=== PATIENT | male | born 1960 | race Caucasian/White ===

== ENCOUNTER 2019-03-17 11:37 | Emergency (ER) | payer MEDICAID ==
[~2019-03-17] VITALS: Ht 170.2 cm; Wt 68.0 kg
[2019-03-17 12:17] VITALS: BP 155/73
[2019-03-17] MEDS ORDERED: KETOROLAC TROMETH 60MG/2ML VIAL IM ONE (12:30)
== END 2019-03-17 13:09 | disposition home or self-care (01) ==
LOC: ER 11:43
DX: M54.5 Low back pain (principal); R51 Headache; M25.562 Pain in left knee; F17.210 Nicotine dependence, cigarettes, uncomplicated
CPT/HCPCS: 93005; 96372; 99283; J1885

== ENCOUNTER 2021-06-20 14:41 | Emergency (ER) | payer MEDICAID ==
[~2021-06-20] VITALS: Ht 170.2 cm; Wt 81.6 kg
[2021-06-20 19:24] VITALS: BP 141/94
== END 2021-06-20 19:36 | disposition home or self-care (01) ==
LOC: ER 14:41
DX: N39.0 Urinary tract infection, site not specified (principal); M47.816 Spondylosis without myelopathy or radiculopathy, lumbar region; N43.3 Hydrocele, unspecified; R30.0 Dysuria; F32.9 Major depressive disorder, single episode, unspecified; F17.210 Nicotine dependence, cigarettes, uncomplicated
CPT/HCPCS: 72100; 76870

== ENCOUNTER 2022-01-10 17:34 | Inpatient (IN) | payer MEDICAID ==
[~2022-01-10] VITALS: Ht 170.2 cm; Wt 86.2 kg
[2022-01-10 19:07] LABS: Basophils # (auto) 0 10 ^3/uL (0-0.2); Basophils % (auto) 0.6 % (0.0-2.0); Eosinophils # (auto) 0.1 10 ^3/uL (0-0.8); Eosinophils % (auto) 1.8 % (0.0-7.0); Hemoglobin 12.5 g/dL (13.5-17.5); Lymphocytes # (auto) 1.4 10 ^3/uL (0.4-5.4); Lymphocytes % (auto) 27.8 % (10.0-50.0); Mean Corpuscular Hemoglobin 30.5 pg (28.0-32.0); Mean Corpuscular Hgb Conc. 34.7 g/dL (32.0-36.0); Mean Corpuscular Volume 87.8 fL (80.0-100.0); Monocytes # (auto) 0.6 10 ^3/uL (0-1.3); Monocytes % (auto) 12.3 % (0.0-12.0); Neutrophils # (auto) 2.9 10 ^3/uL (1.6-8.6); Neutrophils % (auto) 57.5 % (37.0-80.0); Nucleated Red Blood Cells % 0.2 %; Red Cell Distribution Width 21.1 % (11.8-14.3)
[2022-01-10 19:19] LABS: Albumin 3.2 g/dL (3.4-5.0); Calcium 9.6 mg/dL (8.5-10.1); Potassium 4.1 mmol/L (3.5-5.1)
[2022-01-10 19:25] LABS: BUN/Creatinine Ratio 20.2; Bilirubin, Total 0.3 mg/dL (0.2-1.0); Total Protein 7.4 g/dL (6.4-8.2)
[2022-01-10] MEDS ORDERED: IOHEXOL 300 MG/ML 100ML BOTTLE IJ ONE (19:47)
[2022-01-10] MEDS ORDERED: PANTOPRAZOLE 40 MG/10 ML VIAL INJ IV ONE (20:30)
[2022-01-10] MEDS ORDERED: ONDANSETRON HCL 4 MG/2 ML VIAL IV PRN (23:00)
[2022-01-10] MEDS ORDERED: NITROGLYCERIN 0.4 MG SL TAB SL PRN (23:00)
[2022-01-10] MEDS ORDERED: MORPHINE SULFATE INJECTION 2 MG/ML SYRG IV PRN (23:00)
[2022-01-10] MEDS: SODIUM CHLORIDE 0.9% 1,000 ML IV SCH (23:26)
[2022-01-11 01:34] LABS: Basophils # (auto) 0 10 ^3/uL (0-0.2); Basophils % (auto) 0.8 % (0.0-2.0); Eosinophils # (auto) 0.1 10 ^3/uL (0-0.8); Eosinophils % (auto) 2.7 % (0.0-7.0); Hematocrit 34.1 % (41.0-53.0); Hemoglobin 11.7 g/dL (13.5-17.5); Lymphocytes # (auto) 1.3 10 ^3/uL (0.4-5.4); Lymphocytes % (auto) 28.7 % (10.0-50.0); Mean Corpuscular Hemoglobin 30.1 pg (28.0-32.0); Mean Corpuscular Hgb Conc. 34.4 g/dL (32.0-36.0); Mean Corpuscular Volume 87.4 fL (80.0-100.0); Monocytes # (auto) 0.6 10 ^3/uL (0-1.3); Monocytes % (auto) 13.3 % (0.0-12.0); Neutrophils # (auto) 2.4 10 ^3/uL (1.6-8.6); Neutrophils % (auto) 54.5 % (37.0-80.0); Nucleated Red Blood Cells % 0.1 %; White Blood Cell 4.5 10^3/uL (4.4-10.8)
[2022-01-11 01:36] LABS: Red Cell Distribution Width 21.2 % (11.8-14.3)
[2022-01-11 05:00] VITALS: BP 144/93
[2022-01-11] MEDS: CLINDAMYCIN 900MG IV 50 ML IV SCH ×3 (06:33→21:55)
[2022-01-11] MEDS: SODIUM CHLORIDE 0.9% 1,000 ML IV SCH ×2 (06:34→15:40)
[2022-01-11 06:44] LABS: Basophils # (auto) 0 10 ^3/uL (0-0.2); Eosinophils # (auto) 0.1 10 ^3/uL (0-0.8); Eosinophils % (auto) 2.7 % (0.0-7.0); Hematocrit 35.1 % (41.0-53.0); Lymphocytes % (auto) 24.4 % (10.0-50.0); Mean Corpuscular Hemoglobin 29.9 pg (28.0-32.0); Mean Corpuscular Hgb Conc. 34.1 g/dL (32.0-36.0); Mean Corpuscular Volume 87.7 fL (80.0-100.0); Monocytes # (auto) 0.5 10 ^3/uL (0-1.3); Monocytes % (auto) 11.6 % (0.0-12.0); Neutrophils # (auto) 2.5 10 ^3/uL (1.6-8.6); Neutrophils % (auto) 60.3 % (37.0-80.0); Nucleated Red Blood Cells % 0.2 %; White Blood Cell 4.2 10^3/uL (4.4-10.8)
[2022-01-11 06:54] LABS: Red Cell Distribution Width 20.7 % (11.8-14.3)
[2022-01-11 07:03] LABS: Albumin 3.1 g/dL (3.4-5.0); BUN/Creatinine Ratio 18.1; Calcium 9.2 mg/dL (8.5-10.1); Potassium 4.4 mmol/L (3.5-5.1)
[2022-01-11 07:12] LABS: Bilirubin, Total 0.3 mg/dL (0.2-1.0); Total Protein 6.7 g/dL (6.4-8.2)
[2022-01-11 09:00] VITALS: BP 125/89
[2022-01-11] MEDS: PANTOPRAZOLE 40 MG/10 ML VIAL INJ IV SCH (09:30)
[2022-01-11 13:00] VITALS: BP 144/84
[2022-01-11 17:26] VITALS: BP 141/84
[2022-01-11 20:00] VITALS: BP 120/81
[2022-01-11 22:00] VITALS: BP 120/81
[2022-01-12] MEDS: SODIUM CHLORIDE 0.9% 1,000 ML IV SCH ×2 (01:12→08:37)
[2022-01-12 04:44] VITALS: BP 132/71
[2022-01-12] MEDS: CLINDAMYCIN 900MG IV 50 ML IV SCH ×2 (06:10→14:00)
[2022-01-12 09:00] VITALS: BP 136/82
[2022-01-12] MEDS ORDERED: CLIN300C8 PO (09:30)
[2022-01-12] MEDS ORDERED: PANT40T PO (09:30)
[2022-01-12] MEDS: PANTOPRAZOLE 40 MG/10 ML VIAL INJ IV SCH (09:34)
[2022-01-12 13:04] VITALS: BP 154/106
[2022-01-12 14:14] VITALS: BP 154/101
== END 2022-01-12 15:42 | disposition home health service (06) | DRG 253 ==
LOC: ER 17:34 → TELE 22:49 → TELE-WESTW 23:43
PROVIDERS: ADMIT Hospitalist; ATTEND Hospitalist
DX: K92.2 Gastrointestinal hemorrhage, unspecified (principal); E44.0 Moderate protein-calorie malnutrition; C18.9 Malignant neoplasm of colon, unspecified; C78.7 Secondary malignant neoplasm of liver and intrahepatic bile duct; L02.31 Cutaneous abscess of buttock; F17.210 Nicotine dependence, cigarettes, uncomplicated; K76.0 Fatty (change of) liver, not elsewhere classified; L03.317 Cellulitis of buttock; R91.1 Solitary pulmonary nodule; Z20.822 Contact with and (suspected) exposure to COVID-19; Z68.29 Body mass index [BMI] 29.0-29.9, adult
CPT/HCPCS: 36415; 74177; 80053; 82378; 83690; 84484; 85025; 86850; 86900; 86901; 93005; 96374; C9113; G0378; J3490